=== PATIENT | female | born 1955 | race Two or more races ===

== ENCOUNTER 2019-07-02 21:33 | Emergency (ER) | payer OTHER ==
[~2019-07-02] VITALS: Ht 165.1 cm; Wt 70.3 kg
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
[2019-07-02] MEDS ORDERED: IOHEXOL-300 100 ML VIAL IV ONE (22:22)
[2019-07-02 22:29] LABS: CALCIUM, SERUM 8.9 mg/dL (8.5-10.1); CREATININE 0.8 mg/dL (0.6-1.3)
[2019-07-02 23:49] VITALS: BP 132/86
--- NOTE | 2019-07-02 23:49 | NUR ---
Patient discharged to home in stable condition. Written and verbal after care instructions given. Patient verbalizes understanding of instruction. IV removed. Catheter intact and site benign. Pressure and 4x4 applied to site. No bleeding noted.
== END 2019-07-02 23:54 | disposition home or self-care (01) ==
LOC: ER 21:33
DX: S30.0XXA Contusion of lower back and pelvis, initial encounter (principal); S10.83XA Contusion of other specified part of neck, initial encounter; S20.212A Contusion of left front wall of thorax, initial encounter; V49.49XA Driver injured in collision with other motor vehicles in traffic accident, initial encounter; Y93.89 Activity, other specified; Y92.413 State road as the place of occurrence of the external cause; Y99.8 Other external cause status
CPT/HCPCS: 36415; 71260; 72125; 74177; 80048; 99284; Q9967